=== PATIENT | male | born 1990 | race Caucasian/White ===

== ENCOUNTER 2017-08-03 22:50 | Emergency (ER) | payer BC, SELFPAY ==
[~2017-08-03] VITALS: Ht 172.7 cm; Wt 83.9 kg
[2017-08-04] MEDS ORDERED: LIDOCAINE W/EPINEPHRINE 1% 20ML VIAL SC ONE (00:30)
--- NOTE | 2017-08-04 00:44 | REP ---
Clinical: Laceration. Foreign body. Technique: AP, lateral views of the left tibia / fibula. Findings: No acute fracture or dislocation. Skeletal structures and joint spaces are intact and normal. No subcutaneous emphysema, obvious laceration, or foreign body appreciated. Impression: Normal left tibia / fibula radiographs. No obvious subcutaneous emphysema or radiodense foreign body. Signed by Lino Couch MD 08/04/2017 12:35 A
[2017-08-04] MEDS ORDERED: CLEO300C2 PO (01:57)
[2017-08-04 02:15] VITALS: BP 148/102
== END 2017-08-04 02:16 | disposition home or self-care (01) ==
LOC: M ED 22:50
DX: S81.812A Laceration without foreign body, left lower leg, initial encounter (principal); V48.5XXA Car driver injured in noncollision transport accident in traffic accident, initial encounter; Y92.410 Unspecified street and highway as the place of occurrence of the external cause; Y93.89 Activity, other specified; Y99.8 Other external cause status; F17.210 Nicotine dependence, cigarettes, uncomplicated; F12.90 Cannabis use, unspecified, uncomplicated; Z88.8 Allergy status to other drugs, medicaments and biological substances